=== PATIENT | male | born 1985 | race Caucasian/White ===

== ENCOUNTER 2016-11-02 01:47 | Emergency (ER) | payer OTHER ==
--- NOTE | 2016-11-02 02:02 | ERPHSYRPT ---
- History of Present Illness Time Seen by Provider: 11/02/16 01:57 Source: patient Exam Limitations: no limitations Physician History: pt fell catching his right arm and sustained fracture; also sustained small lac to right supraorbital area no LOC no palp denisse stepoff or tenderness; neck is notender with full ROM remainder of right arm nontender with full ROM Occurred: just prior to arrival Method of Injury: fell Quality: constant, stabbing, throbbing Severity of Pain-Max: moderate Severity of Pain-Current: moderate Extremities Pain Location: forearm: right, wrist: right Associated Symptoms: none Allergies/Adverse Reactions: No Known Drug Allergies Allergy (Unverified 11/02/16 02:11) - Review of Systems Constitutional: No Fever, No Chills Eyes: No Symptoms Ears, Nose, & Throat: No Symptoms Respiratory: No Cough, No Dyspnea Cardiac: No Chest Pain, No Edema, No Syncope Abdominal/Gastrointestinal: No Abdominal Pain, No Nausea, No Vomiting, No Diarrhea Genitourinary Symptoms: No Dysuria Musculoskeletal: Fall, Injury, Other (right distal forearm), No Back Pain, No Neck Pain Skin: No Rash Neurological: No Dizziness, No Focal Weakness, No Sensory Changes Psychological: No Symptoms Endocrine: No Symptoms Hematologic/Lymphatic: No Symptoms Immunological/Allergic: No Symptoms All Other Systems: Reviewed and Negative - Past Medical History Pertinent Past Medical History: No - Nursing Vital Signs Nursing Vital Signs: Initial Vital Signs Temperature 98 F Temperature Source Oral Pulse Rate 112 Respiratory Rate 20 Blood Pressure [Right Arm] 140/80 Pain Intensity 8 - Physical Exam General Appearance: no apparent distress, alert Eyes, Ears, Nose, Throat Exam: moist mucous membranes Neck Exam: non-tender, supple Cardiovascular/Respiratory Exam: chest non-tender, normal breath sounds, regular rate/rhythm, no respiratory distress Abdominal Exam: non-tender, soft, No guarding Back Exam: normal inspection, No vertebral tenderness Shoulder Exam: normal inspection, non-tender, no evidence of injury, normal ROM Elbow/Forearm Exam: normal inspection, non-tender, no evidence of injury, normal ROM Wrist Exam: bone tenderness, deformity, pain, soft tissue tenderness, swelling Hand Exam: normal inspection, non-tender, no evidence of injury, normal ROM DTR - Upper Extremity Exam: bicep (R): 2+, bicep (L): 2+, tricep (R): 2+, tricep (L): 2+ Neuro/Tendon Exam: normal sensation, normal motor functions Mental Status Exam: alert, oriented x 3, cooperative Skin Exam: normal color, warm, dry, laceration (right supraorbital region) Oxygen Delivery: Room Air Procedures - Splinting Location of Splint: Left, Forearm Type of Splint: Orthoglass Short Arm Splint Splint Applied By: ED Nurse Pre-Proc Neuro Vasc Exam: normal (there is subjective tingling/numbness but light touch still intact) Post-Proc Neuro Vasc Exam: unchanged from pre-exam - Laceration/Wound Repair Right Face Wound Location: Right, forehead Wound Length (cm): 3 Wound's Depth, Shape: linear, into subcut Wound Explored: no foreign body noted Irrigated: Yes (NS) Hibiclens Prep: Yes Anesthesia: topical, 1% Lidocaine Volume Anesthetic (ccs): 3 Wound Debrided: minimal Wound Repaired With: sutures Suture Size/Type: 6-0, prolene Number of Sutures: 6 Layer Closure?: No Sterile Dressing Applied?: Yes Splint Applied?: No Sling Applied?: No - Course Nursing assessment & vital signs reviewed: Yes - Radiology Exams Forearm X-ray Interpretation: Reviewed by me, Displaced Fracture, Other (discussed and viewed by Dr. Wallis - [facility] hand) Ordered Tests: Active Orders 24 hr Category Date Time Status Prepare for Sutures STAT Care 11/02/16 02:03 Active Sutures STAT Care 11/02/16 02:03 Active FOREARM Stat Exams 11/02/16 02:02 Taken Medication Summary Discontinued Medications Generic Name Dose Route Start Last Admin Trade Name Hunter PRN Reason Stop Dose Admin Diphtheria/Tetanus/Acell Pertussis 0.5 ml 11/02/16 02:03 11/02/16 02:20 Adacel Vial IM 11/02/16 02:04 0.5 ml .ONCE ONE Administration Diphtheria/Tetanus/Acell Pertussis Confirm 11/02/16 02:14 Adacel Vial Administered 11/02/16 02:15 Dose 0.5 ml IM .STK-MED ONE Lidocaine HCl Confirm 11/02/16 02:14 Xylocaine 1% Hcl 20 Ml Mdv Administered 11/02/16 02:15 Dose 5 ml .ROUTE .STK-MED ONE Meperidine HCl 50 mg 11/02/16 02:32 11/02/16 02:46 Demerol 50 Mg IM 11/02/16 02:33 50 mg STAT ONE Administration Meperidine HCl Confirm 11/02/16 02:35 Demerol 50 Mg Administered 11/02/16 02:36 Dose 50 mg .ROUTE .STK-MED ONE Promethazine HCl 50 mg 11/02/16 02:33 11/02/16 02:46 Phenergan 25 Mg Inj IM 11/02/16 02:34 50 mg STAT ONE Administration Promethazine HCl Confirm 11/02/16 02:41 Phenergan 25 Mg Inj Administered 11/02/16 02:42 Dose 50 mg .ROUTE .STK-MED ONE - Progress Progress: improved, re-examined Progress Note: 11/02/16 03:[address] Wallis Ortho Hand and x-ray sent for him to view, and after this review he feels pt is OK for splint and DC as long as vascular remains intact as some neuropraxia is expected resulting in some tingling and numb feling . actually the pt does have intact feeling to touch but some subjective feeling of tingling/numbness. color and circ is good and he will see on Thursday for definitive treatment after swelling goes down with splinting. 11/02/16 03:[address] Other (Dr. Wallis) Will see patient in: office (thursday) Counseled pt/family regarding: diagnosis, need for follow-up, rad results - Departure Time of Disposition: 03:39 Departure Disposition: Home Clinical Impression: Fracture of radius, distal, left, closed, dorsal and radial displacement, Laceration of head, Neuropraxia of left upper extremity Condition: Good Critical Care Time: No Instructions: Concussion, Distal Radius Fracture, Care for a Laceration After Repair Additional Instructions: followup with Dr. Wallis at his office Thursday for definitive treatment ; return meantime if increased numbness, increased pain, loss of circulation , or other concerns. APply ice pack up to 10 minutes then off for at least 10 minutes as needed to help and keep elevated to help reduce swelling; there is nerve bruising which most often resolves , but in some cases may not; although we see no signs of concussion there can be also delayed brain swelling from the head injury so we are giving you concussion precautions. the stitches can be removed by your dr with steristrip placement in 5 days . Prescriptions: Mupirocin [Bactroban OINTMENT] 15 gm TP BID #1 tube Oxycodone HCl/Acetaminophen [Percocet 5-325 mg Tablet] 1 each PO Q4-6HPRN PRN # 14 tablet PRN Reason: Pain
[2016-11-02] MEDS ORDERED: Adacel Vial IM ONE ×2 (02:03→02:14)
[2016-11-02 02:11] VITALS: O2SAT 98
[2016-11-02] MEDS ORDERED: XYLOCAINE 1% HCL 20 ML MDV ONE (02:14)
[2016-11-02] MEDS ORDERED: DEMEROL 50 MG IM ONE (02:32)
[2016-11-02] MEDS ORDERED: Phenergan 25 MG INJ IM ONE (02:33)
[2016-11-02] MEDS ORDERED: DEMEROL 50 MG ONE (02:35)
[2016-11-02] MEDS ORDERED: Phenergan 25 MG INJ ONE (02:41)
[2016-11-02] MEDS ORDERED: BACIGUENT PACKET ONE (03:11)
[2016-11-02] MEDS ORDERED: BACIGUENT PACKET TP ONE (03:55)
[2016-11-02 04:47] VITALS: BP 148/84; PULSE 88
[2016-11-02] MEDS ORDERED: XYLOCAINE 1% HCL 20 ML MDV IJ ONE (05:00)
--- NOTE | 2016-11-02 08:55 | XRAY ---
Indication: Pain following injury. Comparison: None 2 views of the left forearm demonstrates oblique fracture involving the distal radius with intra-articular extension and soft tissue swelling. Fracture fragment and carpal bones are mildly displaced and angulated. No other bony, articular, or soft tissue abnormalities.
== END 2016-11-02 04:40 | disposition home or self-care (01) ==
LOC: ED 01:47
PROC: 0HQ1XZZ Repair Face Skin, External Approach (ICD-10-PCS; principal; 2016-11-02)
PROC: 2W3DX1Z Immobilization of Left Lower Arm using Splint (ICD-10-PCS; 2016-11-02)
DX: S52.502A Unspecified fracture of the lower end of left radius, initial encounter for closed fracture (principal); S01.91XA Laceration without foreign body of unspecified part of head, initial encounter; W18.30XA Fall on same level, unspecified, initial encounter; S44.92XA Injury of unspecified nerve at shoulder and upper arm level, left arm, initial encounter
CPT/HCPCS: 12013; 29126; 73090; 90471; 90715; 96372; 99284; J2175; J2550; A9270-GY